=== PATIENT | male | born 1970 | race Caucasian/White ===

== ENCOUNTER 2022-06-10 04:22 | Day surgery (SDC) | payer BC ==
[2022-06-08 09:35] VITALS: BMI 28.0
[2022-06-10 11:37] VITALS: TEMP 98.2
[2022-06-10 12:21] VITALS: BP 122/76; PULSE 63; RESP 22
== END 2022-06-10 12:17 | disposition home or self-care (01) ==
LOC: JASU-ENDO 04:22
PROVIDERS: ATTEND Internal Medicine Gastroenterology
PROC: 0DBL8ZX Excision of Transverse Colon, Via Natural or Artificial Opening Endoscopic, Diagnostic (ICD-10-PCS; principal; 2022-06-10 12:00)
DX: Z12.11 Encounter for screening for malignant neoplasm of colon (principal); Z86.010 Personal history of colon polyps; D12.3 Benign neoplasm of transverse colon; K57.30 Diverticulosis of large intestine without perforation or abscess without bleeding
CPT/HCPCS: 88305-TC